=== PATIENT | male | born 1985 | race Caucasian/White ===

== ENCOUNTER 2018-05-27 12:31 | Emergency (ER) | payer MEDICAID ==
[~2018-05-27] VITALS: Ht 175.3 cm; Wt 82.0 kg
[2018-05-27] MEDS ORDERED: KETOROLAC 15MG/ML VIAL IM ONE ×2 (21:15→21:30)
[2018-05-27] MEDS ORDERED: KETOROLAC 15MG/ML VIAL IV PRN (21:30)
[2018-05-27 22:54] VITALS: BP 118/81
== END 2018-05-27 22:55 | disposition home or self-care (01) ==
LOC: ER 12:31
DX: M25.562 Pain in left knee (principal); W50.2XXA Accidental twist by another person, initial encounter; Y93.89 Activity, other specified; Y92.89 Other specified places as the place of occurrence of the external cause; Y99.8 Other external cause status
CPT/HCPCS: 73560; 96372; 99284; J1885; L1830